=== PATIENT | male | born 1945 | race Caucasian/White ===

== ENCOUNTER 2017-02-13 12:30 | Outpatient (RCR) | payer OTHER ==
[~2017-02-13 12:30] MED LIST: ASPIRIN E.C. 8181 MG PO; DEPO-TESTOS100 MG/ML IM; LIPITOR20 MG PO; NO HOME MEDICATIONS; VIAGRA50 MG PO; [UNRECOGNIZED DRUG - OTHER] IM
== END 2017-03-06 14:08 | disposition home or self-care (01) ==
LOC: WSPT 12:30
DX: M79.661 Pain in right lower leg (principal)
CPT/HCPCS: G8978-GP; G8979-GP

== ENCOUNTER → 2017-11-27 | Outpatient (REF) | LOC: ZLAB.WCH 18:03 | DX: Z01.89 Encounter for other specified special examinations (principal) | CPT/HCPCS: G0103 ==

== ENCOUNTER 2018-10-05 08:08 | Outpatient (CLI) | payer MEDICARE ==
[~2018-10-05] VITALS: Ht 193.1 cm; Wt 158.0 kg
[2018-10-05] MEDS ORDERED: TOPROL XL100 MG PO (09:02)
[2018-10-05] MEDS ORDERED: CRESTOR 10MG10 MG PO (09:03)
[2018-10-05] MEDS ORDERED: DEPO-TESTOS200 MG/M1 IM (09:04)
[2018-10-05 09:10] VITALS: BP 150/75; PULSE 63; TEMP 98.1
[2018-10-05] MEDS ORDERED: CEPHALEXIN500 M1 PO (10:10)
[2018-10-05 10:25] VITALS: BP 160/82; PULSE 65
--- NOTE | 2018-10-05 10:30 | NUR ---
Pt brittany loop recorder placement well. Pt discharged per ambulation with .
== END 2018-10-05 10:31 | disposition home or self-care (01) ==
LOC: COL.CAR 08:08
DX: I48.0 Paroxysmal atrial fibrillation (principal); E78.5 Hyperlipidemia, unspecified; I10 Essential (primary) hypertension; I25.10 Atherosclerotic heart disease of native coronary artery without angina pectoris; I44.7 Left bundle-branch block, unspecified; Z88.6 Allergy status to analgesic agent; Z79.82 Long term (current) use of aspirin; Z82.49 Family history of ischemic heart disease and other diseases of the circulatory system; Z82.3 Family history of stroke; Z80.3 Family history of malignant neoplasm of breast

== ENCOUNTER → 2023-07-03 | Outpatient (CLI) | payer OTHER ==
[~2023-07-03] MED LIST changes: +CEPHALEXIN500 M1 PO; +COREG 25MG25 MG/TAB PO; +CRESTOR 10MG10 MG PO; +DEPO-TESTOS200 MG/M1 IM; +MASON NATURAL2000 IU PO; +NAPROSYN 2250 MG/TAB PO; +TOPROL XL100 MG PO
== END ==
LOC: COL.RAD 09:24
DX: H90.3 Sensorineural hearing loss, bilateral (principal)
CPT/HCPCS: A9575